=== PATIENT | female | born 1935 ===

== ENCOUNTER 2021-06-13 12:41 | Inpatient (IN) | payer MEDICARE ==
[~2021-06-13] VITALS: Ht 160 cm; Wt 59.9 kg
[2021-07-18 15:49] LABS: COLLECTION METHOD CLEAN CATCH
[2021-07-18 15:59] LABS: PH 5 (5-8); SQUAMOUS EPITHELIAL 0-2 /hpf (0-10); URINE APPEARANCE Hazy (CLEAR/HAZY); URINE BACTERIA None Seen (NONE SEEN); URINE BILIRUBIN Negative (NEGATIVE); URINE BLOOD Negative (NEGATIVE); URINE COLOR Yellow (YELLOW); URINE GLUCOSE 1+ (NEGATIVE); URINE KETONE Negative (NEGATIVE); URINE LEUKOCYTE ESTERASE 3+ (NEGATIVE); URINE NITRATE Negative (NEGATIVE); URINE PROTEIN(semi-quant) Negative (NEGATIVE); URINE UROBILINOGEN Negative (NEGATIVE); URINE WBC 20-50 /hpf (0-2)
[2021-07-19] VITALS (12 sets, daily range): BP systolic 92–147; BP diastolic 37–80; PULSE 63–82; TEMP 97.8–98.6
[2021-07-19 05:57] LABS: COLLECTION METHOD CATHETER
[2021-07-19 06:16] LABS: MUCOUS Present (NOT PRESENT); PH 5 (5-8); SQUAMOUS EPITHELIAL None Seen /hpf (0-10); URINE APPEARANCE Clear (CLEAR/HAZY); URINE BACTERIA None Seen (NONE SEEN); URINE BILIRUBIN Negative (NEGATIVE); URINE BLOOD Negative (NEGATIVE); URINE COLOR Straw (YELLOW); URINE GLUCOSE Negative (NEGATIVE); URINE KETONE Negative (NEGATIVE); URINE LEUKOCYTE ESTERASE Negative (NEGATIVE); URINE NITRATE Negative (NEGATIVE); URINE PROTEIN(semi-quant) Negative (NEGATIVE); URINE RBC None Seen /hpf (0-2); URINE UROBILINOGEN Negative (NEGATIVE)
[2021-07-19] MEDS ORDERED: TOPROL XL 25MG25 MG PO (06:59)
[2021-07-19] MEDS ORDERED: CELEXA10 MG PO (06:59)
[2021-07-19] MEDS ORDERED: ASPIRIN 81M81 MG/TA2 PO (07:00)
[2021-07-19] MEDS ORDERED: TIROSINT50 MC1 PO (07:00)
[2021-07-19] MEDS ORDERED: ULTRAM 50MG TAB50 MG PO (07:01)
[2021-07-19] MEDS ORDERED: LIVALO2 MG PO (07:01)
--- NOTE | 2021-07-19 11:10 | NUR ---
No recorded V/S to document
--- NOTE | 2021-07-19 11:57 | NUR ---
No recorded vital signs on dynamap
[2021-07-20 00:13] VITALS: BP 137/51; PULSE 75; TEMP 97.3
[2021-07-20 03:25] VITALS: BP 130/53; PULSE 70; TEMP 97.8
--- NOTE | 2021-07-20 06:29 | NUR ---
PT RESTING QUIETLY IN BED WITH EYES CLOSED. PT STATES THAT PAIN IS MINIMAL UNTIL SHE MOVES HER RIGHT LEG. DRESSING TO RIGHT HIP CDI. FRESH ICE PACK APPLIED. PT HAS BEEN AMBULATING TO USE BR WITH 1 ASSIST, GAIT BELT ET WALKER, HAS TOLERATED WELL. PT A&O X3, IS VERY CIRCLE WITHOUT HEARING AIDS IN, WEARS GLASSES. SCDs ON BILATERAL LEGS. PT TOLERATING PO INTAKE WELL, IV WAS SALINE LOCKED.
[2021-07-20 06:57] LABS: HEMATOCRIT 34.9 % (37.0-47.0)
[2021-07-20 07:00] VITALS: BP 127/53; PULSE 86; TEMP 97.6
--- NOTE | 2021-07-20 07:01 | NUR ---
Report received from SHON Lopez. Patient is sitting up in bed watching TV. Patient denies pain at this time. Call light and bedside table are within reach. Will continue to monitor patient throughout shift.
--- NOTE | 2021-07-20 11:05 | NUR ---
transit worker met with the patient and her daughter Urmila to discuss discharge plan. Patient reports that she lives at home and that her daughter Urmila ([phone]) has recently moved in with her. Patient reports that prior to surgery she is fully independent with her activities of daily living and that she uses a walker to assist with mobility. Patient reports to no oxygen needs. PCP is in [place] and she utilizes [facility] for perscriptions with no cost difficulty. Patient reports that she does have a DPOA-HC established and that her daughter Urmila is her agent. Copy at home. Patient's understanding the need for SNF and that her first choice would be [facility] and [facility] as a second choice. Referral made to [facility]. Discharge plan: [facility] vs [facility]
--- NOTE | 2021-07-20 11:30 | NUR ---
cloth printing utility worker notified by [facility] that they are not accepting any patient's right now due to Covid and no bed availability. Lucia in [facility] notified with referral and patient notified that [place] is not accepting patients at this time.
[2021-07-20 12:43] VITALS: BP 126/60; PULSE 69; TEMP 97.4
--- NOTE | 2021-07-20 14:57 | NUR ---
Susy with [facility] accepts patient and would like to admit patient on Saturday.
[2021-07-20 15:22] VITALS: BP 136/47; PULSE 72; TEMP 97.6
[2021-07-20 20:08] VITALS: BP 109/45; PULSE 73; TEMP 98.1
[2021-07-21 00:15] VITALS: BP 137/54; PULSE 79; TEMP 97.9
--- NOTE | 2021-07-21 01:49 | NUR ---
PT USES CALL LIGHT, STATES SHE IS FEELING NAUSEOUS. PT IS SUCKING ON A MINT CANDY. ZOFRAN IV ADMINISTERED. PT HAS BEEN AMBULATING TO WITH SBA. GAIT IS STEADY. PT IS GIVEN FRESH ICE WATER, DENIES OTHER NEEDS. RESPIRATIONS UNLABORED. CALL LIGHT WITHIN REACH.
[2021-07-21 03:23] VITALS: BP 153/58; PULSE 72; TEMP 97.4
--- NOTE | 2021-07-21 03:46 | NUR ---
TRANSCRIBING MACHINE OPERATOR REPORTS THAT PT APPEARS TO BE SHIVERING. PT IS IN BED, SIPPING ON WATER. PT'S AXILLARY TEMP IS NORMAL. PT STATES THAT SHE IS STILL NAUSEOUS ET IS BELCHING FREQUENTLY, BELCHING GIVES HER SOME RELIEF. PT STATES THAT SHE HAS HAD FLATUS. DENIES ANY OTHER SYMPTOMS BESIDES NAUSEA, HAS NOT HAD ANY EMESIS. PT IS GIVEN SPRITE ET SALTINE CRACKERS, STATES THAT IT USUALLY HELPS HER SYMPTOMS WHEN SHE IS @ HOME. PT DENIES OTHER NEEDS, IS INSTRCTED TO NOTIFY STAFF OF VOMITING OR SYMPTOMS NOT IMPROVING, VERBALIZES UNDERSTANDING. RESPIRATIONS UNLABORED. CALL LIGHT WITHIN REACH.
--- NOTE | 2021-07-21 06:53 | NUR ---
awake resting in bed, bedside shift report received from SHON Damon
--- NOTE | 2021-07-21 07:30 | NUR ---
assisted out of bathroom and back to bed, c/o feeling very nauseated this am and like she could throw up, refusing breakfast, offered zofran and sprite and crackers, refuses zofran at this time, provided sprite, encouraged to rest
[2021-07-21 07:34] LABS: HEMOGLOBIN 10.1 g/dl (12.5-16.0)
[2021-07-21 07:37] VITALS: BP 142/57; PULSE 65; TEMP 98.6
[2021-07-21 07:44] LABS: HEMATOCRIT 32.6 % (37.0-47.0)
--- NOTE | 2021-07-21 08:10 | NUR ---
in bed and appears to be sleeping, eyes closed, resp quiet and easy
[2021-07-21] MEDS ORDERED: ASPI325T6 PO (08:14)
[2021-07-21] MEDS ORDERED: CELEBREX 200MG200 MG PO (08:14)
[2021-07-21] MEDS ORDERED: ULTRAM 50MG TAB50 MG PO (08:15)
[2021-07-21] MEDS ORDERED: ROXICODONE 55 MG/TAB PO (08:16)
[2021-07-21] MEDS ORDERED: ZOFRAN 4MG T4 MG/TAB PO (08:18)
--- NOTE | 2021-07-21 09:43 | NUR ---
has had some breakfast and is feeling better, took am meds, will transfer to [facility] later
--- NOTE | 2021-07-21 10:15 | NUR ---
assisted up and into WC and discharged and trasferred to INP room 340
== END 2021-07-21 10:15 | DRG 470 ==
LOC: SURG 07-19 05:10 → INPTSU 07-19 05:10 → SURG 07-19 07:30
PROVIDERS: ADMIT Orthopaedic Surgery
PROC: 0SR904A Replacement of Right Hip Joint with Ceramic on Polyethylene Synthetic Substitute, Uncemented, Open Approach (ICD-10-PCS; principal; 2021-07-19 07:30)
DX: M16.11 Unilateral primary osteoarthritis, right hip (principal)
CPT/HCPCS: A9284; C1713; C1776; J0690; J2250; J2405; J2704; J7030; J7120

== ENCOUNTER 2021-07-21 10:05 | Inpatient (IN) | payer MEDICARE ==
[~2021-07-21] VITALS: Ht 160 cm; Wt 62.0 kg
[~2021-07-21 10:05] MED LIST: ASPI325T6 PO; ASPIRIN 81M81 MG/TA2 PO; CELEBREX 200MG200 MG PO; CELEXA10 MG PO; LIVALO2 MG PO; ROXICODONE 55 MG/TAB PO; TIROSINT50 MC1 PO; TOPROL XL 25MG25 MG PO; ULTRAM 50MG TAB50 MG PO; ZOFRAN 4MG T4 MG/TAB PO
--- NOTE | 2021-07-21 10:16 | NUR ---
transferred per WC to room 340 from room 329
--- NOTE | 2021-07-21 10:33 | NUR ---
occupational therapy in to work with patient
--- NOTE | 2021-07-21 11:39 | NUR ---
Dr Clements was in to see patient, she is c/o nausea and medicated with zofran 4mg po
--- NOTE | 2021-07-21 11:57 | NUR ---
physical therapy in and patient to physical therapy work room
--- NOTE | 2021-07-21 12:24 | NUR ---
sitting up in chair having ice cream and visiting with her daughter
--- NOTE | 2021-07-21 12:42 | NUR ---
Dr Clements in to see patient
--- NOTE | 2021-07-21 12:59 | NUR ---
resting in chair
--- NOTE | 2021-07-21 13:00 | NUR ---
bedside shift report given to SHON Hernandez
--- NOTE | 2021-07-21 13:54 | NUR ---
Received report from SHON Alfaro. To take over care for remainder of shift.
--- NOTE | 2021-07-21 14:00 | NUR ---
PT ASSESSMENT COMPLETED, PT REPORTS NAUSEA. DAUGHTER STATES NAUSEA HAS BEEN UNRESOLVED SINCE 0000. PT HAS CLEAR LUNGS. S1,S2 HEARD. PT HAS RIGHT HIP DRESSING WITH AQUACELL, CLEAN, DRY, INTACT. PT DENIES PAIN AT TIME OF ASSESSMENT. PT HAS TEDS ON. PT HAS SOME EDEMA OF RIGHT HIP NOTED. PT REQUESTING BEDSIDE TABLE WITH DRAWER, WARM BLANKET, SPRITE. PT ABLE TO AMBULATE TO RESTROOM, STANDBY ASSIST WITH WALKER. PT CALL LIGHT WITHIN REACH.
[2021-07-21 15:34] VITALS: BP 164/66; PULSE 72; TEMP 97.6
--- NOTE | 2021-07-21 17:51 | NUR ---
PT AMBULATED TO RESTROOM, PT MENTIONED NAUSEA HAS BEGUN TO IMPROVE.
[2021-07-21 18:23] VITALS: BP 119/47; PULSE 74; TEMP 98.3
--- NOTE | 2021-07-21 19:10 | NUR ---
Pt oriented to room to best of ability. Pt nausea managed with prn medication per orders. Pt able to abmulate to restroom with gait belt, walker, and non-skid socks. Pt able to call for needs. Pt pain managed with prn medications per orders. Report given to casino shift manager.
--- NOTE | 2021-07-21 19:44 | NUR ---
RECEIVED CHANGE OF SHIFT REPORT FROM DAY SHIFT RN. PATIENT RESTING IN BED DURING REPORT. BED ALARM ON WITH CALL LIGHT WITHIN REACH. AMBULATED TO BATHROOM WITH SBA. DENIES CHEST PAIN/SOA/NAUSEA AT THIS TIME. DENIES NUMBNESS/TINGLING TO EXTREMITIES AT TIME OF REPORT.
[2021-07-22 04:24] VITALS: BP 158/62; PULSE 70; TEMP 98.1
--- NOTE | 2021-07-22 07:00 | NUR ---
CHANGE OF SHIFT REPORT GIVEN TO DAY SHIFT MINH MENENDEZ.
--- NOTE | 2021-07-22 07:19 | NUR ---
Report given by SHON Luis. Patient is resting in bed. Call light and bedside table are within reach. Will continue to monitor patient throughout shift.
--- NOTE | 2021-07-22 12:58 | NUR ---
Chaplain caldera and offered support with patient.
[2021-07-22 15:53] VITALS: BP 126/54; PULSE 83; TEMP 98
--- NOTE | 2021-07-22 19:15 | NUR ---
RECEIVED CHANGE OF SHIFT REPORT FROM DAY SHIFT RN. UP IN CHAIR WITH EXIT ALARM ON WITH CALL LIGHT WITHIN REACH.
--- NOTE | 2021-07-22 20:00 | NUR ---
AGREED TO TAKE PAIN MEDS WITH HS MEDS. DENIES PASSING STOOL, AGREED TO TAKE MIRALAX WITH HS MEDS.
[2021-07-23 04:36] VITALS: BP 117/53; PULSE 70; TEMP 97.6
--- NOTE | 2021-07-23 06:50 | NUR ---
Report received from SHON Luis. Patient is sleeping in bed. Call light and bedside table are within reach. Will continue to monitor throughout shift.
--- NOTE | 2021-07-23 07:20 | NUR ---
CHANGE OF SHIFT REPORT GIVEN TO DAY SHIFT MINH MENENDEZ.
--- NOTE | 2021-07-23 15:31 | NUR ---
Patient reported she has had BM x 4 today but this has been unwitnessed by this nurse and only x 1 with the INSIDE SALES ADMINISTRATOR.
[2021-07-23 16:23] VITALS: BP 132/54; PULSE 71; TEMP 97.8
--- NOTE | 2021-07-23 17:44 | NUR ---
Patient was very pleasant today. She only c/o pain once and this nurse administered pain medication. Patient is resting in recliner.
--- NOTE | 2021-07-23 19:00 | NUR ---
RECEIVED CHANGE OF SHIFT REPORT FROM DAY SHIFT RN. PATIENT UP IN CHAIR DURING REPORT, CALL LIGHT WITHIN REACH. DENIES CHEST PAIN/SOA/NAUSEA AT THIS TIME. DENIES NUMBNESS/TINGLING TO EXTREMITIES CURRENTLY. EXIT ALARMS ON WHEN EITHER UP IN CHAIR OR LAYING IN BED.
[2021-07-24 05:40] VITALS: BP 120/48; PULSE 75; TEMP 97.2
--- NOTE | 2021-07-24 07:25 | NUR ---
CHANGE OF SHIFT REPORT GIVEN TO DAY SHIFT RNLOGAN.
--- NOTE | 2021-07-24 08:06 | NUR ---
Pt. progressing w/ plan of care. Pt. OOB to the bathroom w/ walker. Steady gait noted. Standby assist for safety. Pt. denies needs at this time, call light and belongings in reach.
--- NOTE | 2021-07-24 14:16 | NUR ---
Admission QIM scores were reviewed by the team. Code of 4 chosen for toilet hygiene was determined by team discussion to be the most usual performance for this patient during the assessment period. Code of 3 chosen for shower/bathe self was determined by team discussion to be the most usual performance before interventions for this patient during the assessment period. Code of 5 chosen for upper body dressing was determined by team discussion to be the most usual performance before interventions for this patient during the assessment period. Code of 3 chosen for lower body dressing was determined by team discussion to be the most usual performance for this patient during the assessment period. Code of 1 chosen for putting on/taking off footwear was determined by team discussion to be the most usual performance for this patient during the assessment period. Code of 4 chosen for rolling left to right was determined by team discussion to be the most usual performance before interventions for this patient during the assessment period. Code of 4 chosen for sit to lying was determined by team discussion to be the most usual performance before interventions for this patient during the assessment period. Code of 4 chosen for lying to sitting on side of bed was determined by team discussion to be the most usual performance for this patient during the assessment period. Code of 4 for sit to stand was determined by team discussion to be the most usual performance for this patient during the assessment period.--PD Adriel
--- NOTE | 2021-07-24 15:52 | NUR ---
Pt. reports she uses a suppository daily at baseline. PRN suppository given today with very minimal effect. Pt. reports at home she takes an enema at times if she is constipated. Pt. requesting an enema at this time. JANA Benjamin notified, JANA Benjamin let JANA Thomas know. New orders obtained from JANA Thomas for PRN enema.
--- NOTE | 2021-07-24 15:59 | NUR ---
Workers Compensation Claims Examiner collaborated with Susy, [facility] Director who advised patient will tentatively discharge on 07/26/21. SW met with patient to discuss discharge planning. Patient lives in [facility] and advised her daughter, Urmila (ph#[phone]) lives with her. Patient sees Dr. Faustin for primary care and obtains medications from [facility] in [place] with no difficulties. Patient has a rollator, canes, and crutches at home. Patient is agreeable to discharge date. SW discussed recommendation for outpatient therapy at discharge. Patient states she wants to discuss this with her daughter. Patient states PT today said she would be "fine". SW will follow up.
[2021-07-24 17:30] VITALS: BP 146/98; PULSE 53; TEMP 97.9
[2021-07-25 05:58] VITALS: BP 146/64; PULSE 70; TEMP 98.2
--- NOTE | 2021-07-25 06:55 | NUR ---
awake and sitting up in chair, bedside shift report received from SHON Linton
--- NOTE | 2021-07-25 07:32 | NUR ---
had breakfast and is now resting in chair, full assessment completed, see interventions for further info, denies needs at this time
--- NOTE | 2021-07-25 08:30 | NUR ---
out of room and working with physical therapy
--- NOTE | 2021-07-25 09:15 | NUR ---
returned to room from physical therapy and occupational therapy now in to work with her
--- NOTE | 2021-07-25 10:30 | NUR ---
resting in chair visiting with her daughter, provided miralax 1pkt per her request
--- NOTE | 2021-07-25 13:15 | NUR ---
out of room and working with therapy
--- NOTE | 2021-07-25 14:11 | NUR ---
returned to room from working with physical therapy
--- NOTE | 2021-07-25 15:17 | NUR ---
Cooking Casing And Drying Supervisor followed up with patient who is now agreeable to outpatient therapy and would like it set up at [facility] in [place]. SW reviewed IM form with patient who verbalized understanding and provided signature. SW placed form in chart and provided copy to patient. SW contacted patient's daughter, Urmila to touch base on discharge plan. Urmila is in agreement with patient discharging home tomorrow. SW contacted [facility] and left a message.
--- NOTE | 2021-07-25 15:53 | NUR ---
Ruby Software Developer scheduled patient's outpatient PT/OT evaluation for , 07/27/21. WHITNEY provided appointment to Angelina MENENDEZ to put in patient's discharge orders. WHITNEY will faxed referral and orders to fax#[phone] tomorrow.
[2021-07-25 16:18] VITALS: BP 144/67; PULSE 78; TEMP 98.5
--- NOTE | 2021-07-25 17:23 | NUR ---
sitting up in chair having supper
--- NOTE | 2021-07-25 19:02 | NUR ---
bedside shift report given to SHON Damon
--- NOTE | 2021-07-26 03:40 | NUR ---
PT SLEEPING @ THIS TIME. PT HAD BEEN HAVING INCREASED RIGHT LEG PAIN AFTER AMBULATING TO BR, RATED 7/10. ULTRAM PO WAS ADMINISTERED. PT HAS BEEN AMBULATING TO BR INDEPENDENTLY ET TOLERATING WELL. RESPIRATIONS UNLABORED. CALL LIGHT WITHIN REACH.
[2021-07-26 05:26] VITALS: BP 122/63; PULSE 67; TEMP 98
--- NOTE | 2021-07-26 06:40 | NUR ---
Report received from SHON Bolanos. Patient is sleep in bed. Call light and bedside table are within reach. Will continue to monitor patient throughout shift.
[2021-07-26] MEDS ORDERED: OXY IR5 MG PO ×2 (11:10→11:11)
[2021-07-26] MEDS ORDERED: ULTRAM 50MG TAB50 MG PO ×2 (11:10→11:16)
[2021-07-26] MEDS ORDERED: ROXICODONE 55 MG/TAB PO (11:16)
--- NOTE | 2021-07-26 13:49 | NUR ---
Patient to discharge home today with outpatient therapy. WHITNEY faxed clinical information and discharge orders to [facility].
--- NOTE | 2021-07-26 15:00 | NUR ---
Patient health summary, discharge summary and home meds printed and reviewed with patient and daughter. Stressed importance of follow up apointments. Reviewed medications. Belongings gatered by daughter including cell phone and costume specialist. Patient transported via by SHON Stratton and seatbelted for ride home.
== END 2021-07-26 15:00 | disposition home or self-care (01) | DRG 561 ==
PROVIDERS: ADMIT Physical Medicine & Rehabilitation Sports Medicine
DX: Z47.1 Aftercare following joint replacement surgery (principal); R11.0 Nausea; D64.89 Other specified anemias; I10 Essential (primary) hypertension; E03.9 Hypothyroidism, unspecified; E78.5 Hyperlipidemia, unspecified; R26.89 Other abnormalities of gait and mobility; K59.00 Constipation, unspecified; F32.A Depression, unspecified; Z96.643 Presence of artificial hip joint, bilateral; Z79.899 Other long term (current) drug therapy; Z73.6 Limitation of activities due to disability; Z79.891 Long term (current) use of opiate analgesic; Z79.82 Long term (current) use of aspirin
CPT/HCPCS: 99222; 99231-AI

== ENCOUNTER 2022-05-07 12:07 | Outpatient (CLI) | payer MEDICARE ==
--- NOTE | 2022-05-02 13:12 | NUR ---
LMOM WITH INSTRUCTIONS AND CALL BACK NUMBER.
[~2022-05-07] VITALS: Ht 160 cm; Wt 57.6 kg
[~2022-05-07 12:07] MED LIST changes: +CYMBALTA 30MG30 MG PO; +MIRTAZAPINE7.5 MG PO; +MOBIC 7.5MG7.5 MG PO; +OXY IR5 MG PO
[2022-05-07 12:27] VITALS: BP 179/94; PULSE 87; TEMP 97.7
[2022-05-07 14:40] VITALS: BP 166/80; PULSE 77
[2022-05-07 15:00] VITALS: BP 170/86; PULSE 78
[2022-05-07 15:15] VITALS: BP 171/81; PULSE 78
[2022-05-07 15:30] VITALS: BP 174/86; PULSE 77
== END 2022-05-07 15:50 | disposition home or self-care (01) ==
LOC: COL.RAD 12:07
DX: M48.061 Spinal stenosis, lumbar region without neurogenic claudication (principal); M47.896 Other spondylosis, lumbar region
CPT/HCPCS: Q9966